=== PATIENT | male | born 1955 | race Caucasian/White ===

== ENCOUNTER 2020-03-19 00:50 | Emergency (ER) | payer MEDICARE, MEDICAID ==
[~2020-03-19] VITALS: Ht 167.7 cm; Wt 53.9 kg
[~2020-03-19 00:50] MED LIST: ACHYD1T; ALPR1TAB2 PO; BACL20TA; DIAZ2TAB2; MORP30TA; PREG50CA2; SOFO400T; [UNRECOGNIZED DRUG - CODE]
--- OUTSIDE RECORDS SUMMARY | 2020-03-19 00:56 | XMS REPORT ---
Author Author [employer] project scientist [employer] [facility] [employer] project scientist [employer] Address [address] [address] Care Team Providers Care Project Assistant Name Role Phone JB MONTES Unavailable Unavailable Unavailable Unavailable Allergies No Information Encounters Encounter Date Encounter Type Encounter Diagnosis Care Provider Facility Start: Patient encounter JB MONTES Rootless 03-12-2020 procedure [facility] Start: Patient encounter JB MONTES Rootless 02-12-2020 [facility] Start: Patient encounter JB MONTES Rootless 01-09-2020 procedure [facility] Medical Equipment No Information Goals No Information Immunizations No Information Interventions No Information Medications No Information Payers No Information Plan of Treatment No Information Problems No Information Procedures No Information Results No Information Social History No Information Vital Signs No Information Functional Status No Information Mental Status No Information Additional Source Comments This clinical document has been generated using [employer] software that has been certified by the Office of the National Coordinator for Health Information Technology (ONC 15.99.04.3023.Diam.[id number]) and the National Committee for Home Health Care Case Manager (NCQA, as an eMeasure certified technology). FOR RECORDS PERTAINING TO PATIENTS WHO ARE OR HAVE BEEN ENROLLED IN A CHEMICAL D EPENDENCY/SUBSTANCE ABUSE PROGRAM, SOME INFORMATION MAY BE OMITTED. This clinica l summary was aggregated from multiple sources. Caution should be exercised in using it in the provision of clinical care. This summary normalizes information from multiple sources, and as a consequence, information in this document may ma terially change the coding, format and clinical context of patient data. In сергей tion, data may be omitted in some cases. CLINICAL DECISIONS SHOULD BE BASED ON T HE PRIMARY CLINICAL RECORDS. [employer] provides no warranty or guara ntee of the accuracy or completeness of information in this document.The followi ng information is based on time limited clinical information
--- OUTSIDE RECORDS SUMMARY | 2020-03-19 00:56 | XMS REPORT | Continuity of Care Document ---
Author Organization Unknown Address Unknown Phone Unavailable Allergies Active Description Code Type Severity Reaction Onset Reported/Identified Relationship to Patient Clinical Status Yes No Known Drug Allergies [id number] Drug Allergy Unknown N/A 06/04/2015 Medications There is no data. Problems Date Dx Coded Attending Type Code Diagnosis Diagnosed By 06/04/2015 JACKSON HANNA APRN Ot F11.23 06/04/2015 JACKSON HANNA APRN Ot F19.231 06/04/2015 JACKSON HANNA APRN Ot R44 .3 06/04/2015 JACKSON HANNA APRN Ot T40.2X6A 06/04/2015 JACKSON HANNA APRN Ot T42.4X6A 06/04/2015 JACKSON HANNA APRN Ot Z91.128 Procedures There is no data. Results There is no data. Encounters ACCT No. Visit Date/Time Discharge Status Pt. Type Provider Facility Loc./Unit Complaint [id number] 03/12/2020 08:40:00 03/12/2020 23:59:5 9 [facility] Outpatient Albaro Camacho [facility] [address] [place] [id number] 06/04/2015 11:27:00 015 23:59:59 [facility] Emergency JACKSON HANNA APRN Via [facility] ER
[2020-03-19 02:13] LABS: CHLORIDE 111 MMOL/L (98-107); INR 1.2 (0.8-1.4); POTASSIUM 3.9 MMOL/L (3.6-5.0); PROTHROMBIN TIME PATIENT 15.3 SEC (12.2-14.7); SODIUM 137 MMOL/L (135-145)
[2020-03-19 02:14] LABS: AMMONIA 44 UMOL/L (11-32); CALCIUM 8.1 MG/DL (8.5-10.1)
[2020-03-19 02:15] LABS: GLUCOSE 97 MG/DL (70-105); TOTAL PROTEIN 6.4 GM/DL (6.4-8.2)
[2020-03-19 02:16] LABS: CARBON DIOXIDE 16 MMOL/L (21-32)
[2020-03-19 02:19] LABS: ALKALINE PHOSPHATASE 54 U/L (40-136); CREATININE SERUM 0.96 MG/DL (0.60-1.30); GFR ESTIMATED > 60
[2020-03-19 02:20] LABS: BUN/CREATININE RATIO 21
[2020-03-19 02:22] LABS: ALANINE AMINOTRANSFERASE 17 U/L (0-55)
--- NOTE | 2020-03-19 03:30 | ED General ---
General Chief Complaint: General Problems/Pain Stated Complaint: AMS Nursing Triage Note: TO ED VIA [facility] FROM [facility] ER. PT ER TO ER TRANSFER ACCEPTED BY DR. BALL. PER NX REPORT PT HAS BEEN SEEN AT [facility] TWICE FOR AMS, SLURRING WORDS. GIVEN NARCAN AND 1L NS BOTH TIMES AND PT MORE A&O AFTER. PT WAS POSITIVE FOR METH, CANNIBIS, BENZO'S. BECAME AGITATED ON TRANFER FROM BED TO EMS COT AND GIVEN HALDOL PRIOR TO DEPARTURE HERE. Nursing Sepsis Screen: No Definite Risk Source of Information: Patient, Old Records Exam Limitations: No Limitations History of Present Illness Date Seen by Provider: Mar 19, 2020 Time Seen by Provider: 00:51 Initial Comments This 64-year-old man presents to the emergency room via EMS transfer from [facility] in [place] where he presented 2 for altered mental status. Family initially brought him in because he appeared to have was seen to them to be a seizure while fishing. He reportedly fell over backwards and 10 step in a ball. According to his [id number]-od-vjh, he quit breathing for about 20 minutes. He was taken by private vehicle to [facility] in [place]. Thorough workup revealed no major abnormalities. Although he denied drug or alcohol use, he tested positive for THC and methamphetamines. CT of the head was unremarkable. Patient also has history of seizure disorder. It is unclear if he is compliant with medications. Patient improved with hydration and then was discharged. However, he had another event and return to the emergency room in [place]. Presentation was similar but this time he had some slurred speech. There were no focal deficits. The mid-level provider, Cinthia Cesar did not feel comfortable dismissing him home after a second episode without further evaluation. She attempted to transfer to one of the [facility] where neurology services are available. However, both [facility] are on diversion. She therefore transferred him to [facility] as a higher level of care. Patient also appears to have an abscess on his back for which she is taking Bactrim. Allergies and Home Medications Allergies Coded Allergies: No Known Drug Allergies (Unverified , 06/04/15) Home Medications Alprazolam 1 Mg Tablet, 1 MG PO TID Prescribed by: JACKSON HANNA on 06/04/15 1269 Patient Home Medication List Home Medication List Reviewed: Yes Review of Systems Review of Systems Constitutional: no symptoms reported EENTM: no symptoms reported Respiratory: no symptoms reported Cardiovascular: no symptoms reported Gastrointestinal: no symptoms reported Genitourinary: no symptoms reported Musculoskeletal: no symptoms reported Skin: see HPI Psychiatric/Neurological: See HPI Hematologic/Lymphatic: No Symptoms Reported Immunological/Allergic: no symptoms reported Past Hwbfgyw-Gzzacy-Ihagab Hx Past Med/Social Hx: Reviewed Nursing Past Med/Soc Hx Patient Social History Alcohol Use: Regular Use Alcohol Beverage of Choice: Beer Recreational Drug Use: Yes Drug of Choice: MARIJUANA, METH Smoking Status: Current Everyday Smoker Recent Foreign Travel: No Contact w/Someone Who Travel: No Recent Infectious Disease Expo: No Recent Hopitalizations: No Physical Abuse: No Sexual Abuse: No Mistreated: No Fear: No Past Medical History Surgeries: Yes (wrist) Gallbladder Respiratory: Yes COPD Cardiac: No Neurological: No Reproductive Disorders: No Genitourinary: No Gastrointestinal: Yes Hepatitis Musculoskeletal: Yes Chronic Back Pain Endocrine: No HEENT: No Cancer: No Psychosocial: Yes Anxiety Integumentary: No Blood Disorders: Yes (hep c) Physical Exam Vital Signs Vital Signs - First Documented 03/19/20 00:51 Temp 36.7 Pulse 77 Resp 20 B/P (MAP) 101/64 (76) Pulse Ox 100 O2 Delivery Room Air Capillary Refill : Less Than 3 Seconds Height, Weight, BMI Height: 5'5" Weight: 120lbs. oz. 54.796365kv; 19.00 BMI Method:Stated General Appearance: WD/WN, Mild Distress HEENT: PERRL/EOMI, Normal ENT Inspection, Pharynx Normal Neck: Normal Inspection Respiratory: Lungs Clear, Normal Breath Sounds, No Accessory Muscle Use, No Respiratory Distress Cardiovascular: Regular Rate, Rhythm, No Edema, No Murmur Gastrointestinal: Normal Bowel Sounds, Non Tender, Soft Extremity: Normal Inspection, No Pedal Edema Neurologic/Psychiatric: Alert, Oriented x3, No Motor/Sensory Deficits, Normal Mood/Affect, marriage performer II-XII Norm as Tested, Other (Generalized dystonic movements) Skin: Normal Color, Warm/Dry, Other (Nickel-sized soft draining abscess on the mid back) Progress/Results/Core Measures Suspected Sepsis Recent Fever Within 48 Hours: No Infection Criteria Present: None New/Unexplained Altered Menta: Yes Sepsis Screen: No Definite Risk SIRS Temperature: Pulse: 77 Respiratory Rate: 20 Blood Pressure 101 /64 Mean: 76 Laboratory Tests 7/21/20 01:45: Creatinine 0.96, INR Comment 1.2, Total Bilirubin < 0.1L Results/Orders Lab Results Laboratory Tests Test 03/19/20 01:45 Range/Units Prothrombin Time 15.3 H 12.2-14.7 SEC INR Comment 1.2 0.8-1.4 Sodium Level 137 135-145 MMOL/L Potassium Level 3.9 3.6-5.0 MMOL/L Chloride Level 111 H 98-107 MMOL/L Carbon Dioxide Level 16 L 21-32 MMOL/L Anion Gap 10 5-14 MMOL/L Blood Urea Nitrogen 20 H 7-18 MG/DL Creatinine 0.96 0.60-1.30 MG/DL Estimat Glomerular Filtration Rate > 60 BUN/Creatinine Ratio 21 Glucose Level 97 70-105 MG/DL Calcium Level 8.1 L 8.5-10.1 MG/DL Corrected Calcium 8.1 L 8.5-10.1 MG/DL Total Bilirubin < 0.1 L 0.1-1.0 MG/DL Aspartate Amino Transf (AST/SGOT) 35 H 5-34 U/L Alanine Aminotransferase (ALT/SGPT) 17 0-55 U/L Alkaline Phosphatase 54 40-136 U/L Ammonia 44 H 11-32 UMOL/L Total Protein 6.4 6.4-8.2 GM/DL Albumin 4.0 3.2-4.5 GM/DL My Orders Orders - CHRISTA BALL MD Ammonia (03/19/20 01:36) Comprehensive Metabolic Panel (03/19/20 01:36) Protime With Inr (03/19/20 01:36) Vital Signs/I&O 03/19/20 03/19/20 00:51 04:48 Temp 36.7 36.7 Pulse 77 57 Resp 20 16 B/P (MAP) 101/64 (76) 111/85 (76) Pulse Ox 100 100 O2 Delivery Room Air Room Air Capillary Refill : Less Than 3 Seconds Blood Pressure Mean: 76 Progress Note : Progress Note Patient's mental status was apparently significantly improved from when he was assessed at the ER in [place]. He is now alert, oriented, and able to carry on a conversation without slurring his words. He has dystonic movements consistent with the influence of methamphetamines. Paperwork was reviewed. Given the history of hepatitis additional labs were obtained including a repeat CMP, INR, and ammonia level. Ammonia level was slightly elevated. Patient's mental status continued to improve with time. He was ultimately discharged home. The ER in [place] was given an update. It was unclear if patient actually had a seizure. It was noted that he was recently prescribed Ultram. I informed the patient he should not take Ultram if he has ever had a seizure. Departure Impression Primary Impression: Altered mental status Qualified Codes: R41.82 - Altered mental status, unspecified Additional Impressions: Polysubstance abuse Abscess Disposition: HOME, SELF-CARE Condition: Improved Departure-Patient Inst. Decision time for Depature: 03:30 Referrals: NO,LOCAL PHYSICIAN (PCP/Family) Primary Care Physician Patient Instructions: Polysubstance Abuse Add. Discharge Instructions: Seek assistance with treatment for substance abuse. You may do so through your primary care provider or the [facility]. Follow-up with your primary care provider as soon as possible. Please call today for an appointment. Drink plenty of clear liquids. Continue your seizure medications as previously prescribed. Do not take tramadol (Ultram) as this may increase your risk for seizures. Complete your antibiotics as prescribed. All discharge instructions reviewed with patient and/or family. Voiced understanding. CHRISTA BALL MD Mar 19, 2020 03:30
--- NOTE | 2020-03-19 03:45 | NUR ---
DR. BALL CALLED AND SPOKE WITH EVANGELISTA, DAUGHTER IN LAW, AND UPDATED ON PT CONDITION AND DISCHARGE INSTRUCTIONS. FAMILY TO COME TO [facility] PT.
[2020-03-19 04:48] VITALS: BP 111/85
[2020-03-19 12:12] LABS: BILIRUBIN,TOTAL 0.5 MG/DL (0.1-1.0)
== END 2020-03-19 04:49 | disposition home or self-care (01) ==
LOC: EDUNIT# 00:50 → ER 00:51
DX: R41.82 Altered mental status, unspecified (principal); F15.188 Other stimulant abuse with other stimulant-induced disorder; F12.10 Cannabis abuse, uncomplicated; R25.8 Other abnormal involuntary movements; L02.212 Cutaneous abscess of back [any part, except buttock and flank]; J44.9 Chronic obstructive pulmonary disease, unspecified; M54.9 Dorsalgia, unspecified; G40.909 Epilepsy, unspecified, not intractable, without status epilepticus; B19.20 Unspecified viral hepatitis C without hepatic coma; F41.9 Anxiety disorder, unspecified
CPT/HCPCS: 36415; 80053; 82140; 85610